=== PATIENT | female | born 1980 | race African-American/Black ===

== ENCOUNTER 2017-09-20 21:50 | Emergency (ER) | payer MEDICAID, SELFPAY ==
[2017-09-20] MEDS ORDERED: Neomycin/Polymyxin/HC Otic Solution 10 ML BOT ONE (22:40)
[2017-09-20] MEDS ORDERED: Naproxen 500 MG TAB ONE (22:43)
[2017-09-20] MEDS ORDERED: AMOXicillin 250 MG CAP ONE (22:43)
== END 2017-09-20 22:58 | disposition home or self-care (01) ==
LOC: MADERS 21:50
DX: H66.91 Otitis media, unspecified, right ear (principal); H72.91 Unspecified perforation of tympanic membrane, right ear; E11.9 Type 2 diabetes mellitus without complications; F17.210 Nicotine dependence, cigarettes, uncomplicated; I10 Essential (primary) hypertension
CPT/HCPCS: 99282

== ENCOUNTER 2021-01-22 11:08 | Emergency (ER) | payer MEDICAID, OTHER, SELFPAY ==
[~2021-01-22 11:08] MED LIST: Iopamidol 370 76% 100 ML VIAL ONE
[2021-01-22] MEDS ORDERED: Sodium Chloride 0.9% 1,000 ML ONE ×2 (12:00→12:55)
[2021-01-22] MEDS ORDERED: Morphine 4 MG/ML VIAL ONE (12:11)
[2021-01-22] MEDS ORDERED: Promethazine HCl 25 MG/ML VIAL ONE (12:12)
[2021-01-22 12:25] LABS: Band 1 % (5-11); Eosinophils 1 % (0-10); Hemoglobin 14.4 g/dL (12.0-16.0); Lymphocytes 56 % (21-51); MDiff Complete? YES; Mean Corpuscular HGB CONC 32.1 g/dL (32.0-36.0); Mean Corpuscular Hemoglobin 30.8 pg (27.0-31.0); Mean Corpuscular Volume 96.1 fL (78.0-98.0); Mean Platelet Volume 7.8 fL (7.4-10.4); Monocytes 2 % (0-10); Neutrophil 40 % (42-75); Platelet Count 407 thou/uL (130-400); Platelet Morphology Comment Appears Increased; RBC Distribution Width 11.8 % (11.5-14.5); RBC Morphology Normal; Red Blood Cell (RBC) Count 4.66 mill/uL (4.20-5.40); White Blood Cell (WBC) Count 13.5 thou/uL (4.8-10.8)
[2021-01-22 12:27] LABS: BHCG - Serum Negative (NEGATIVE); Pregs Control Background? CLEAR/WHITE (CLR/WHITE); Pregs Control Bar Appear? YES (CONTROL BAR)
[2021-01-22 12:31] LABS: ALT (SGPT) 15 U/L (8-55); AST (SGOT) 9 U/L (5-34); Albumin 4.4 g/dL (3.5-5.0); Alkaline Phosphatase 70 U/L (40-110); Anion Gap 16 mmol/L (10-20); BUN (Urea Nitrogen) 5 mg/dL (7.0-18.7); Bilirubin, Total 0.2 mg/dL (0.2-1.2); Calc. Creatinine Clearance 0 mL/min (70-130); Calcium 9.8 mg/dL (7.8-10.44); Carbon Dioxide 22 mmol/L (22-29); Chloride 101 mmol/L (98-107); Globulin 3.6 g/dL (2.4-3.5); Glucose 323 mg/dL (70-105); Lipase 37 U/L (8-78); Potassium 3.9 mmol/L (3.5-5.1); Sodium 135 mmol/L (136-145)
[2021-01-22] MEDS ORDERED: Piperacillin/Tazobactam 4.5 GM VIAL ONE (12:55)
[2021-01-22] MEDS ORDERED: Sodium Chloride 0.9% 100 ML ONE (12:55)
[2021-01-22 12:56] LABS: Bilirubin Negative (Negative); Blood, Urine Negative (Negative); Clarity Hazy (Clear); Glucose, Urine (Dipstick) >=1000 mg/dL (Negative); Ketone, Urine Negative (Negative); Leukocyte Negative (Negative); Nitrite Negative (Negative); Protein, Urine (Dipstick) Negative (Neg-Trace)
[2021-01-22] MEDS ORDERED: Sodium Chloride 0.9% 100 ML BAG ONE (14:16)
[2021-01-22] MEDS ORDERED: Sucralfate 1 GM TAB ONE (14:51)
[2021-01-22] MEDS ORDERED: Pantoprazole 40 MG VIAL ONE (14:51)
== END 2021-01-22 16:37 | disposition short-term general hospital (02) ==
LOC: MADERS 11:08
DX: R10.12 Left upper quadrant pain (principal); D72.829 Elevated white blood cell count, unspecified; R11.2 Nausea with vomiting, unspecified; R19.7 Diarrhea, unspecified; R63.0 Anorexia; R10.816 Epigastric abdominal tenderness; R10.811 Right upper quadrant abdominal tenderness; E11.9 Type 2 diabetes mellitus without complications; I10 Essential (primary) hypertension; F17.210 Nicotine dependence, cigarettes, uncomplicated; Z79.4 Long term (current) use of insulin; Z79.899 Other long term (current) drug therapy
CPT/HCPCS: 74177; 80053; 81003; 83605; 83690; 84703; 85025; 87040; 96365; 96367; 96375; C9113; J2270; J2543; J2550; J3490; J7050; Q9967